=== PATIENT | female | born 1945 ===

== ENCOUNTER 2022-01-25 10:43 | Outpatient (CLI) | payer MEDICARE, OTHER ==
[2022-01-25 12:43] LABS: Hemoglobin 9.7 g/dL (12.0-15.5)
[2022-01-25 13:03] LABS: Anion Gap 13 mmol/L (10-20); BUN (Urea Nitrogen) 15 mg/dL (9.8-20.1); Calc. Creatinine Clearance 0 mL/min (70-130); Calcium 8.8 mg/dL (7.8-10.44); Carbon Dioxide 23 mmol/L (23-31); Chloride 110 mmol/L (98-107); Estimated GFR 79; Glucose 60 mg/dL (83-110); Sodium 142 mmol/L (136-145)
== END 2022-01-25 10:44 | disposition home or self-care (01) ==
LOC: CSHLAB 10:43
PROVIDERS: ATTEND Otolaryngology Otolaryngic Allergy
DX: Z01.818 Encounter for other preprocedural examination (principal); Z20.822 Contact with and (suspected) exposure to COVID-19; J32.8 Other chronic sinusitis
CPT/HCPCS: 80048; 85014; 85018; 87811; 93005; 93010

== ENCOUNTER 2022-01-30 05:42 | Day surgery (SDC) | payer MEDICARE, OTHER ==
[2022-01-25 15:59] VITALS: BMI 41.8
[2022-01-30] MEDS ORDERED: Oxymetazoline HCl 0.05% ( 15 ML ) ONE (06:44)
[2022-01-30] MEDS ORDERED: Midazolam HCl 2 mg/2 ml Vial ONE (06:45)
[2022-01-30] MEDS ORDERED: Fentanyl 250 MCG/5 ML VIAL ONE (06:45)
[2022-01-30] MEDS ORDERED: PROPOFOL 20 ML ONE ×2 (06:45→07:50)
[2022-01-30] MEDS ORDERED: Lidocaine 1% PF 5 ML VIAL ONE (06:45)
[2022-01-30] MEDS ORDERED: Dexamethasone 20 MG/5 ML VIAL ONE (06:46)
[2022-01-30] MEDS ORDERED: Rocuronium Bromide 10 MG/ML (10ML VIAL) ONE (06:46)
[2022-01-30] MEDS ORDERED: Ondansetron PF 4 MG/2 ML Vial ONE (06:46)
[2022-01-30] MEDS ORDERED: Lidocaine 2% PF 5 ML VIAL ONE (06:46)
[2022-01-30] MEDS ORDERED: CEFAZOLIN 1 GM VIAL ONE (07:09)
[2022-01-30] MEDS ORDERED: ePHEDrine Sulfate 50 MG/10 ML VIAL ONE (07:35)
[2022-01-30] MEDS ORDERED: Labetalol HCl 100 MG/20 ML VIAL ONE (07:52)
[2022-01-30] MEDS ORDERED: hydrALAZINE 20 MG/ML VIAL ONE (08:19)
[2022-01-30] MEDS ORDERED: Fentanyl 100 MCG/2 ML VIAL ONE (08:53)
== END 2022-01-30 10:15 | disposition home or self-care (01) ==
LOC: CSHSDC 05:42
PROVIDERS: ATTEND Otolaryngology Otolaryngic Allergy
PROC: 099Q8ZZ Drainage of Right Maxillary Sinus, Via Natural or Artificial Opening Endoscopic (ICD-10-PCS; principal; 2022-01-30)
PROC: 8E09XBZ Computer Assisted Procedure of Head and Neck Region (ICD-10-PCS; 2022-01-30)
DX: J32.8 Other chronic sinusitis (principal); J30.9 Allergic rhinitis, unspecified; Z79.899 Other long term (current) drug therapy; Z88.5 Allergy status to narcotic agent; Z20.822 Contact with and (suspected) exposure to COVID-19; Z87.891 Personal history of nicotine dependence; Z96.653 Presence of artificial knee joint, bilateral; Z96.643 Presence of artificial hip joint, bilateral
CPT/HCPCS: 88305; J0360; J0690; J1100; J2001; J2250; J2405; J2704; J3010